=== PATIENT | female | born 1955 | race Caucasian/White ===

== ENCOUNTER 2021-08-01 07:37 | Emergency (ER) | payer OTHER, BC ==
[~2021-08-01] VITALS: Ht 154.9 cm; Wt 98.9 kg
== END 2021-08-01 12:44 ==
LOC: ER 07:37
DX: U07.1 COVID-19 (principal); J06.9 Acute upper respiratory infection, unspecified; Z88.1 Allergy status to other antibiotic agents; Z88.5 Allergy status to narcotic agent; Z88.6 Allergy status to analgesic agent